=== PATIENT | female | born 1955 | race Caucasian/White ===

== ENCOUNTER → 2021-07-13 | Outpatient (CLI) | payer OTHER ==
[~2021-07-13] MED LIST: COZAAR100 MG PO; ECOTRIN81 MG PO; HYDRALAZINE HCL50 MG PO; HYDROCHLOROTHIA25 MG PO; LIORESAL TAB 1010 MG PO; OMEPRAZOLE20 MG PO; PRAVACHOL40 MG PO; TOPROL XL50 MG PO; TYLENOL 8 HOUR650 MG PO; VOLTAREN EC 7575 MG PO; ZANTAC150 MG PO
== END ==
LOC: CT 09:31
DX: I71.4 Abdominal aortic aneurysm, without rupture (principal); J44.9 Chronic obstructive pulmonary disease, unspecified; I10 Essential (primary) hypertension; R91.1 Solitary pulmonary nodule
CPT/HCPCS: 36415; 75635; 82565; 84520; Q9967